=== PATIENT | female | born 1975 | race Caucasian/White ===

== ENCOUNTER 2016-11-06 23:28 | Emergency (ER) | payer MEDICAID ==
[2016-11-07 00:28] LABS: PLATELET COUNT 291 x10^3mcL (130-400)
[2016-11-07 00:29] LABS: BASOPHIL % 0 % (0-2); RED CELL DISTRIBUTION WIDTH 20.8 % (11.5-14.5)
[2016-11-07 00:34] LABS: CALCIUM 8.8 mg/dL (8.5-10.1); CARBON DIOXIDE 23.7 mmol/L (21-32); CREATININE SERUM 1.1 mg/dL (0.6-1.0); POTASSIUM SERUM 3.6 mmol/L (3.5-5.1)
[2016-11-07 00:38] LABS: ALBUMIN 3.6 g/dL (3.4-5.0); BILIRUBIN TOTAL 0.4 mg/dL (0.20-1.00); TOTAL PROTEIN, SERUM 7.6 g/dL (6.4-8.2)
[2016-11-07 00:42] LABS: rbc morphology (normal/abnorm) ABNORMAL (NORMAL)
[2016-11-07 00:43] LABS: ovalocyte/elliptocyte 1+
[2016-11-07 00:50] LABS: microscopic required? YES; urine erythrocyte TRACE (NEGATIVE)
[2016-11-07 02:40] VITALS: BP 105/40
== END 2016-11-07 03:17 | disposition home or self-care (01) ==
LOC: ED 23:28
PROVIDERS: Emergency Medicine
DX: N23 Unspecified renal colic (principal); N13.30 Unspecified hydronephrosis; N39.0 Urinary tract infection, site not specified; Z79.899 Other long term (current) drug therapy
CPT/HCPCS: 83880; J0500; J0696; J1885; J7030; Q0092

== ENCOUNTER 2020-01-28 09:52 | Emergency (ER) | payer MEDICAID ==
[~2020-01-28] VITALS: Ht 149.9 cm; Wt 79.4 kg
[2020-01-28 10:25] VITALS: Ht 149.9 cm; Wt 79.4 kg
[2020-01-28 12:13] VITALS: BP 178/88
== END 2020-01-28 12:13 | disposition home or self-care (01) ==
LOC: ED 09:52
DX: M53.3 Sacrococcygeal disorders, not elsewhere classified (principal); M54.5 Low back pain; Z86.2 Personal history of diseases of the blood and blood-forming organs and certain disorders involving the immune mechanism